=== PATIENT | male | born 1970 | race Caucasian/White ===

== ENCOUNTER 2017-10-04 09:58 | Emergency (ER) | payer BC ==
[~2017-10-04] VITALS: Ht 182.9 cm; Wt 110.7 kg
[2017-10-04 10:56] LABS: ALBUMIN 4.8 g/dL (3.2-4.8); CHLORIDE 103 mEq/L (99-109); POTASSIUM 3.7 mEq/L (3.7-5.4); SODIUM 138 mEq/L (136-147)
[2017-10-04 10:57] LABS: HEMATOCRIT 46.5 % (38.0-50.0); HEMOGLOBIN 16.6 G/DL (12.5-16.6); MCH 30.9 PG (29.0-34.0); MCHC 35.7 G/DL (30.0-36.0); MCV 86.4 FL (86-99); PLATELET COUNT 222 K/uL (156-360); RBC DIS.WIDTH-CV 12.2 % (11.8-14.6); RBC DIS.WIDTH-SD 38.5 % (39-53); RED BLOOD COUNT 5.38 M/uL (4.00-5.50); WHITE BLOOD COUNT 10.6 K/uL (4.1-10.2)
[2017-10-04 10:58] LABS: GLUCOSE 192 mg/dL (70-99); TOTAL PROTEIN 8.8 g/dL (6.4-8.3)
[2017-10-04 11:00] LABS: TOTAL BILIRUBIN 1.6 mg/dL (0.0-1.0)
[2017-10-04 11:02] LABS: ALKALINE PHOSPHATASE 64 IU/L (3-129); GFR ESTIMATE (CALCULATED) > 59 mL/min/ (58.99-99999)
[2017-10-04 11:03] LABS: UREA NITROGEN (BUN) 14 mg/dL (9-23)
[2017-10-04 11:04] LABS: AST (GOT) 25 IU/L (2-34)
[2017-10-04 11:05] LABS: ALT (GPT) 50 IU/L (3-49)
[2017-10-04 11:13] LABS: APPEARANCE CLEAR ((CLEAR)); BILIRUBIN NEGATIVE; BLOOD NEGATIVE; COLOR YELLOW ((YELLOW)); GLUCOSE (STRIP) NEGATIVE; KETONES NEGATIVE; LEUKOCYTES NEGATIVE; NITRITE NEGATIVE; PROTEIN (STRIP) 30; SPECIFIC GRAVITY 1.025 (1.000-1.030); UCUL ADDED? NO; UROBILINOGEN 0.2 MG/DL (0.2-1.0)
[2017-10-04] MEDS ORDERED: PERCOCET 5/31 TABLET PO (13:43)
[2017-10-04] MEDS ORDERED: NAPROXEN500 MG PO (13:43)
[2017-10-04 13:54] VITALS: BP 134/72
[2017-10-05] MEDS ORDERED: AUGMENTIN875 MG PO (16:47)
== END 2017-10-04 13:55 | disposition home or self-care (01) ==
LOC: RME 09:58 → EME 09:58 → RME 13:55
DX: K42.9 Umbilical hernia without obstruction or gangrene (principal); K40.90 Unilateral inguinal hernia, without obstruction or gangrene, not specified as recurrent; K80.20 Calculus of gallbladder without cholecystitis without obstruction; K57.30 Diverticulosis of large intestine without perforation or abscess without bleeding; R10.33 Periumbilical pain
CPT/HCPCS: 74176; 80053; 81003; 85027; 99281; 99285; J1885; J3010

== ENCOUNTER 2017-10-05 16:05 | Emergency (ER) | payer BC ==
[~2017-10-05] VITALS: Ht 182.9 cm; Wt 110.2 kg
[~2017-10-05 16:05] MED LIST: NAPROXEN500 MG PO; PERCOCET 5/31 TABLET PO
[2017-10-05] MEDS ORDERED: AUGMENTIN875 MG PO (16:47)
[2017-10-05 16:58] VITALS: BP 154/75
== END 2017-10-05 16:58 | disposition home or self-care (01) ==
LOC: EME 16:05
DX: L03.316 Cellulitis of umbilicus (principal); K42.9 Umbilical hernia without obstruction or gangrene; I10 Essential (primary) hypertension; E78.5 Hyperlipidemia, unspecified; J30.2 Other seasonal allergic rhinitis; Z86.39 Personal history of other endocrine, nutritional and metabolic disease
CPT/HCPCS: 99281; 99284

== ENCOUNTER → 2017-10-12 | Outpatient (CLI) | payer BC ==
[~2017-10-12] MED LIST changes: +AUGMENTIN875 MG PO
== END | disposition home or self-care (01) ==
LOC: CDC 10:34
DX: Z01.810 Encounter for preprocedural cardiovascular examination (principal); K42.9 Umbilical hernia without obstruction or gangrene
CPT/HCPCS: 93000

== ENCOUNTER 2017-10-18 11:39 | Day surgery (SDC) | payer BC ==
[~2017-10-18] VITALS: Ht 182.9 cm; Wt 110.7 kg
[~2017-10-18 11:39] MED LIST changes: +CHONDROITIN PO; +GLUCOSAMINE PO; +LAMISIL250 MG PO; +LIPITOR40 MG PO; +MAXEPA500 MG PO; +MEN'S ONE DAIL1 EACH PO; +OZEMPIC1 MG/0.75 SC; +TRIBENZOR 40-11 EAC1 PO
[2017-10-18 12:35] VITALS: BP 137/71
[2017-10-18] MEDS ORDERED: NORCO 5/3251 TABLET PO (14:25)
[2017-10-18] MEDS ORDERED: SEPTRA DS TABL1 EACH PO (14:25)
[2017-10-18 16:32] VITALS: BP 148/79
[2017-10-18 17:25] VITALS: BP 126/60
[2017-10-18 18:29] VITALS: BP 166/78
== END 2017-10-18 18:30 | disposition home or self-care (01) ==
LOC: SDC 11:39
PROVIDERS: Surgery
PROC: 0WUF4JZ Supplement Abdominal Wall with Synthetic Substitute, Percutaneous Endoscopic Approach (ICD-10-PCS; principal; 2017-10-18)
DX: K42.9 Umbilical hernia without obstruction or gangrene (principal); I10 Essential (primary) hypertension; E78.5 Hyperlipidemia, unspecified; E66.9 Obesity, unspecified; E11.9 Type 2 diabetes mellitus without complications; Z68.33 Body mass index [BMI] 33.0-33.9, adult
CPT/HCPCS: 82948; C1781; J0131; J0330; J0690; J1170; J2250; J2405; J2710; J3010; J7643